=== PATIENT | male | born 1955 | race Caucasian/White ===

== ENCOUNTER → 2020-01-09 | Outpatient (CLI) | payer OTHER ==
[~2020-01-09] MED LIST: CARV6.252 PO; CHLO25TA PO; DOXA2TAB9 PO; DULA1.5P SC; LOSA100T14 PO; METF500T17 PO; ROSU10TA2 PO; TORS5TAB4 PO
[2020-01-09 08:56] LABS: ALANINE AMINOTRANSFERASE 78 U/L (12-78); ALBUMIN 3.7 g/dL (3.4-5.0); ANION GAP 3 mmol/L (5-15); CALCIUM 9.7 mg/dL (8.5-10.1); CHLORIDE 107 mmol/L (98-107); CREATININE 0.77 mg/dL (0.7-1.3)
[2020-01-09 08:58] LABS: ALKALINE PHOSPHATASE 43 U/L (45-117); BILIRUBIN,TOTAL 0.7 mg/dL (0.2-1.0); TOTAL PROTEIN 6.9 g/dL (6.4-8.2)
== END | disposition home or self-care (01) ==
LOC: STAR 07:58
PROVIDERS: ATTEND Urology
DX: Z01.818 Encounter for other preprocedural examination (principal); N43.3 Hydrocele, unspecified
CPT/HCPCS: 36415; 80053; 93005

== ENCOUNTER 2020-01-21 11:29 | Day surgery (SDC) | payer OTHER ==
[~2020-01-21] VITALS: Ht 170.2 cm; Wt 123.4 kg
[2020-01-21] MEDS ORDERED: BUPIVACAINE/PF 0.25% ONE (12:01)
[2020-01-21] MEDS ORDERED: LACTATED RINGERS 1,000 ML IV SCH (12:13)
[2020-01-21] MEDS ORDERED: MIDAZOLAM 1 MG/ML, 2ML ONE (13:38)
[2020-01-21] MEDS ORDERED: PROPOFOL 50 ML ONE ×3 (13:38→14:57)
[2020-01-21] MEDS ORDERED: FENTANYL PF 250 MCG/5ML ONE (13:38)
[2020-01-21] MEDS ORDERED: ONDANSETRON 2MG/ML, 2ML ONE (13:50)
[2020-01-21] MEDS ORDERED: ROCURONIUM 10 MG/ML,10ML ONE (13:50)
[2020-01-21] MEDS ORDERED: CEFAZOLIN 1,000 MG ONE (13:50)
[2020-01-21] MEDS ORDERED: SUCCINYLCHOLINE 20 MG/ML, 10ML ONE (13:50)
[2020-01-21] MEDS ORDERED: DEXAMETHASONE 4 MG/ML, 1ML ONE (13:50)
[2020-01-21] MEDS ORDERED: EPHEDRINE 50 MG/ML, 1ML IVPush PRN (15:30)
[2020-01-21] MEDS ORDERED: EPHEDRINE 50 MG/ML, 1ML IM PRN (15:30)
[2020-01-21] MEDS ORDERED: PROMETHAZINE 25 MG/ML, 1ML IV PRN (15:30)
[2020-01-21] MEDS ORDERED: ACETAMINOPHEN 325 MG TABLET PO PRN (15:30)
[2020-01-21] MEDS ORDERED: ONDANSETRON ODT 8 MG PO PRN (15:30)
[2020-01-21] MEDS ORDERED: METOPROLOL 1 MG/ML, 5ML IV PRN (15:30)
[2020-01-21] MEDS ORDERED: ONDANSETRON 2MG/ML, 2ML IV PRN (15:30)
[2020-01-21] MEDS ORDERED: MORPHINE SULFATE 4 MG/ML, 1ML IVPush PRN (15:30)
[2020-01-21] MEDS ORDERED: DIAZEPAM 5 MG/ML, 2ML IVPush PRN (15:30)
[2020-01-21] MEDS ORDERED: MEPERIDINE/PF 25MG/ML,1ML IVPush PRN (15:30)
[2020-01-21] MEDS ORDERED: FENTANYL PF 100 MCG/2ML IV PRN (15:30)
[2020-01-21] MEDS ORDERED: DIPHENHYDRAMINE 50 MG/ML, 1ML IVPush PRN (15:30)
[2020-01-21] MEDS ORDERED: hydrALAzine 20 MG/ML, 1ML IV PRN (15:30)
[2020-01-21] MEDS ORDERED: OXYcodone 5 MG/5 ML ORAL.SOL UDC ONE (16:30)
[2020-01-21] MEDS: OXYcodone 5 MG/5 ML ORAL.SOL UDC PO PRN ×2 (16:31→18:35)
== END 2020-01-21 18:40 | disposition home or self-care (01) ==
LOC: OUT 11:29
PROVIDERS: ATTEND Urology
DX: N43.3 Hydrocele, unspecified (principal); G47.33 Obstructive sleep apnea (adult) (pediatric); I10 Essential (primary) hypertension; E11.9 Type 2 diabetes mellitus without complications; Z79.84 Long term (current) use of oral hypoglycemic drugs; Z79.899 Other long term (current) drug therapy
CPT/HCPCS: 55041; 82962; 88302; J0330; J0690; J1100; J2250; J2405; J2704; J3010; J3490

== ENCOUNTER 2021-05-06 09:54 | Outpatient (CLI) | payer OTHER | END 2021-05-06 23:59 | disposition home or self-care (01) | LOC: CFH 09:54 → RAD 23:59 | PROVIDERS: ATTEND Surgery | DX: E04.1 Nontoxic single thyroid nodule (principal); E21.3 Hyperparathyroidism, unspecified | CPT/HCPCS: 76536; 77080; 78070; A9500 ==